=== PATIENT | male | born 1965 | race Caucasian/White ===

== ENCOUNTER → 2020-04-30 | Day surgery (SDC) | payer OTHER ==
[~2020-04-30] MED LIST: ASPIRIN EC81 MG PO; FISH OIL 1,2001 EAC5 PO; PERCOCET 5-3251 EACH PO; TRAMADOL HCL50 MG PO; VITAMIN B-122500 MCG PO; ZYRTEC10 M3 PO
[2020-04-30 12:03] LABS: HCT 50.6 % (42.0-52.0); HGB 16.3 g/dl (13.2-18.0); MCH 27.8 pg (25.0-31.0); MCHC 32.2 g/dL (32.0-36.0); MCV 86.2 fL (78.0-100.0); MPV 11.7 fL (6.0-9.5); RBC 5.87 M/uL (4.70-6.00); RDW 13.6 % (11.5-14.0); WBC 4.4 K/uL (4.0-10.5)
[2020-04-30 12:13] LABS: BILIRUBIN - TOTAL 0.4 mg/dL (0.2-1.0); BUN/CREAT RATIO (CALC) 20.3 RATIO; CREATININE 0.79 mg/dL (0.67-1.17); GLOBULIN (CALCULATION) 3.3 g/dL; POTASSIUM 4.2 mmol/L (3.5-5.1); TOTAL PROTEIN 7.3 g/dL (6.4-8.2)
== END | disposition home or self-care (01) ==
LOC: FAS 10:00
PROVIDERS: Orthopaedic Surgery
DX: M75.122 Complete rotator cuff tear or rupture of left shoulder, not specified as traumatic (principal); M75.52 Bursitis of left shoulder; M25.812 Other specified joint disorders, left shoulder; M19.012 Primary osteoarthritis, left shoulder; Z88.5 Allergy status to narcotic agent; Z79.82 Long term (current) use of aspirin
CPT/HCPCS: 36415; 71045; 80053; 93005; C1713; J0171; J0690; J0735; J1100; J2250; J2405; J2704; J2795; J3010; J7120